=== PATIENT | male | born 1995 | race Caucasian/White ===

== ENCOUNTER 2019-04-23 20:21 | Emergency (ER) | payer BC, OTHER ==
[2019-04-23] MEDS ORDERED: Lidocaine 1% 10 ML MDV INJECT ONE (21:00)
--- NOTE | 2019-04-23 21:03 | EDM.PDOC ---
ED HPI GENERAL MEDICAL PROBLEM - General Chief Complaint: Laceration Stated Complaint: LACERATION LT HAND Time Seen by Provider: 04/23/19 20:50 Source of Information: Reports: Patient, RN Notes Reviewed - History of Present Illness INITIAL COMMENTS - FREE TEXT/NARRATIVE: 23 yr old male suffered lac injury base of thumb L hand cutting some tubing with a knife with razer type blade. No other area of injury Left Hand Pain Score (Numeric/FACES): 5 - Related Data Allergies Allergy/AdvReac Type Severity Reaction Status Date / Time No Known Allergies Allergy Verified 04/23/19 20:34 Home Meds: Home Meds Cetirizine HCl [Zyrtec] 10 mg PO DAILY 04/23/19 [History] Past Medical History - Past Health History Medical/Surgical History: Denies Medical/Surgical History Social & Family History - Tobacco Use Smoking Status *Q: Never Smoker Second Hand Smoke Exposure: No ED ROS GENERAL - Review of Systems Review Of Systems: See Below Constitutional: Reports: No Symptoms Respiratory: Reports: No Symptoms GI/Abdominal: Denies: Nausea, Vomiting Musculoskeletal: Reports: Other (Laceration injury left thumb) Neurological: Denies: Numbness, Tingling, Weakness ED EXAM, SKIN/RASH Exam: See Below General Appearance: Alert, No Apparent Distress Head: Atraumatic Neck: Supple Respiratory/Chest: No Respiratory Distress Extremities: Other (1.5 cm laceration base of left thumb, shallow but gaping, no active bleeding) Neurological: Alert, No Motor/Sensory Deficits Skin: Warm, Dry, Normal Color ED SKIN PROCEDURES - Laceration/Wound Repair Left Digit - 1st (Thumb) Appearance: Linear Anesthetic Type: Local Local Anesthesia - Lidocaine (Xylocaine): 1% Plain Lac/Wound length In cm: 1.5 Suture Size: 3-0 Suture Type: Nylon Suture Size: 3-0 # of Sutures: 3 Course - Vital Signs Last Recorded V/S: Last Vital Signs Temp 97.8 F 04/23/19 20:31 Pulse 65 04/23/19 20:31 Resp 18 04/23/19 20:31 BP 120/60 04/23/19 20:31 Pulse Ox 98 04/23/19 20:31 - Orders/Labs/Meds Meds: Medications Discontinued Medications Generic Name Dose Route Start Last Admin Trade Name Freq PRN Reason Stop Dose Admin Diphtheria/Tetanus/Acell Pertussis 0.5 ml 04/23/19 21:19 04/23/19 21:55 Adacel IM 04/23/19 21:20 0.5 ml .ONCE ONE Administration Lidocaine HCl 10 ml 04/23/19 21:00 04/23/19 21:14 Xylocaine 1% INJECT 04/23/19 21:01 10 ml ONETIME ONE Administration Departure - Departure Time of Disposition: 21:01 Disposition: Home, Self-Care 01 Condition: Fair Clinical Impression: Hand laceration Qualifiers: Encounter type: initial encounter Foreign body presence: without foreign body Laterality: left Qualified Code(s): S61.412A - Laceration without foreign body of left hand, initial encounter - Discharge Information Instructions: Laceration Care, Adult Referrals: PCP,None [Primary Care Provider] - Forms: ED Department Discharge Additional Instructions: laceration care instr. Stitches out in about 10 days. Keep protected when at work. Have rechecked any sign of infection. Sepsis Event Note - Focused Exam Date Exam was Performed: 04/24/19 Time Exam was Performed: 22:44
[2019-04-23] MEDS ORDERED: Diphtheria,Pertussis(Acell),Tetanus Vaccine 0.5 ML Syringe IM ONE (21:19)
== END 2019-04-23 21:57 | disposition home or self-care (01) ==
LOC: JD.ED 20:21
DX: S61.412A Laceration without foreign body of left hand, initial encounter (principal); Z23 Encounter for immunization; W26.0XXA Contact with knife, initial encounter; Y93.89 Activity, other specified
CPT/HCPCS: 12001; 90471; 90715; 99282; J2001; G0008